=== PATIENT | female | born 1950 | race Caucasian/White ===

== ENCOUNTER → 2024-12-04 | Outpatient (CLI) | payer MEDICARE, SELFPAY ==
--- NOTE | 2024-12-04 10:17 | XR_ITS ---
Examination: Abdomen sonogram, Limited Date and time of exam: December 04, 2024 1048 hours INDICATIONS: Intermittent nausea beginning 5 years ago Technique: Real-time winchester scale transabdominal sonographic images of the upper abdomen obtained. Findings: Normal gallbladder Normal common bile duct 0.2 cm Pancreatic head 2.3 cm Liver 11.4 cm fatty infiltration smooth contour no focal liver lesions Normal hepatopedal portal venous flow Patent IVC IMPRESSION: Normal gallbladder Fatty liver no focal liver lesions
== END | disposition home or self-care (01) ==
LOC: CDIM 10:09
PROVIDERS: PCP Family Medicine; Referring Provider Specialist; Visit Provider Specialist
DX: K76.0 Fatty (change of) liver, not elsewhere classified (principal)
CPT/HCPCS: 76705

== ENCOUNTER 2024-12-05 07:10 | Day surgery (SDC) | payer MEDICARE, SELFPAY ==
[2024-12-05] VITALS (9 sets, daily range): BP systolic 151–186; BP diastolic 85–117; PULSE 59–100; RESP 12–19; TEMP 36.2–37; O2SAT 94–100; BMI 23.3
[2024-12-05] MEDS: SODIUM CHLORIDE 0.9% 100 ML 20 ML IV (09:37)
[2024-12-05] MEDS: ONDANSETRON INJ 2 MG/ML INJ 2 ML 4 MG IV (09:37)
[2024-12-05] MEDS: fentaNYL CIT INJ 50 mCg/ML AMP 2ML (ASD USE ONLY) IV (09:38)
[2024-12-05] MEDS: DiphenhydrAMINE INJ 50 MG/ML VIAL 25 MG IV (09:38)
[2024-12-05] MEDS: MIDAZOLAM INJ 1 MG/ML VIAL 2 ML (ASD USE ONLY) 2 MG IV (09:38)
--- NOTE | 2024-12-05 09:57 | SUR.PHASEII ---
0940: Pt received in [facility] via [facility]. Report from Katherine ALY. Pt groggy, but awake. Resp even, unlabored. VS stable. Denies pain.
--- NOTE | 2024-12-05 10:37 | SUR.PHASEII ---
1005: Pt more awake, alert. VS stable. Denies pain. Sitting up tolerating po fluids with no difficulty swallowing and no n/v. 1026: Pt fully awake, oriented x3. Pt was assisted to restroom. Ambulation steady. Pt and son stated understanding of discharge instructions. Pt also instructed to picker tender her prescription at [facility]. Pt discharged from [facility] in stable condition.
== END 2024-12-05 10:26 | disposition home or self-care (01) ==
PROVIDERS: PCP Family Medicine; Referring Provider Specialist; Visit Provider Specialist
PROC: (CPT 43239; principal; 2024-12-05 08:30)
DX: K21.00 Gastro-esophageal reflux disease with esophagitis, without bleeding (principal); K31.89 Other diseases of stomach and duodenum; K29.50 Unspecified chronic gastritis without bleeding; K31.7 Polyp of stomach and duodenum
CPT/HCPCS: 43239; A4649; J1200; J2250; J2405; J3010; J7050

== ENCOUNTER → 2025-03-19 | Outpatient (CLI) | payer MEDICARE, SELFPAY ==
--- NOTE | 2025-03-19 15:30 | XR_ITS ---
Examination: Thoracic spine 3 views Technique one AP lateral coned lateral upper dorsal spine 3 views Exam date and time: March 29, 2025 1546 hours INDICATIONS: Upper back pain 15 years. FINDINGS: Significant osteopenia Upper thoracic dextroscoliosis 8 degrees No thoracic fracture Mild diffuse thoracic disc narrowing IMPRESSION: Mild diffuse thoracic degenerative disc disease
--- NOTE | 2025-03-19 15:30 | XR_ITS ---
Examination: Lumbar spine 3 views Technique one AP lateral coned lateral lower lumbar spine 3 views Exam date and time: March 19, 2025 1548 hours INDICATIONS: Low back pain 15 years. FINDINGS: Lumbar transpedicular fusion L4-L5 with anatomic alignment Advanced degenerative disc disease above and below the fusion site, L2-L3, L3-L4, L5-S1 IMPRESSION: Transpedicular lumbar fusion L4-L5 with satisfactory alignment Advanced degenerative disc disease L2-L3, L3-L4, L5-S1
== END | disposition home or self-care (01) ==
PROVIDERS: PCP Family Medicine; Referring Provider Orthopaedic Surgery; Visit Provider Orthopaedic Surgery
DX: M51.34 Other intervertebral disc degeneration, thoracic region (principal); M43.26 Fusion of spine, lumbar region; M51.370 Other intervertebral disc degeneration, lumbosacral region with discogenic back pain only; M51.360 Other intervertebral disc degeneration, lumbar region with discogenic back pain only
CPT/HCPCS: 72072; 72100